=== PATIENT | female | born 1950 | race Caucasian/White ===

== ENCOUNTER 2020-10-19 18:59 | Emergency (ER) | payer MEDICARE, OTHER ==
[~2020-10-19] VITALS: Ht 162.6 cm; Wt 74.4 kg
[2020-10-19 19:58] LABS: ABSOLUTE EOSINOPHILS 0.1 thou/uL (0.0-0.7); ABSOLUTE LYMPHOCYTES 1.8 thou/uL (0.8-5.3); ABSOLUTE MONOCYTES 0.5 thou/uL (0.0-1.2); ABSOLUTE NEUTROPHILS 3.4 thou/uL (1.6-8.1); BASOPHILS 0.6 %; EOSINOPHILS 1.7 %; HEMOGLOBIN 12.1 gm/dL (12.0-15.0); LYMPHOCYTES 31.4 %; MCH 29.4 pg (26.0-34.0); MCHC 33.6 g/dL (28.0-37.0); MCV 87.6 fL (80.0-100.0); MONOCYTES 7.8 %; MPV 6.9 fl. (7.2-11.1); NUCLEATED RBCS 0 /100WBC; PLATELET COUNT* 253 thou/uL (150-400); POLYS 58.5 %; RBC 4.11 mil/uL (4.20-5.00); RDW-CV 12.9 % (10.5-14.5); WBC 5.8 thou/uL (4.0-11.0)
[2020-10-19 20:08] LABS: URINE BILIRUBIN NEGATIVE (Negative); URINE BLOOD TRACE (Negative); URINE CLARITY CLEAR; URINE COLOR YELLOW; URINE GLUCOSE-RANDOM NEGATIVE (Negative); URINE KETONES NEGATIVE (Negative); URINE LEUKOCYTES-REFLEX NEGATIVE (Negative); URINE NITRITE-REFLEX NEGATIVE (Negative); URINE PROTEIN NEGATIVE (Negative); URINE SPECIFIC GRAVITY <= 1.005 (1.005-1.030); URINE UROBILINOGEN 0.2 E.U./dl (0.2-1.0)
[2020-10-19 20:09] LABS: CALCIUM 8.3 mg/dL (8.5-10.1); CREATININE 0.8 mg/dL (0.6-1.3); POTASSIUM 3.1 mmol/L (3.5-5.1)
[2020-10-19 20:14] LABS: ALBUMIN 3.7 g/dL (3.4-5.0); MAGNESIUM 2.1 mg/dL (1.8-2.4); TOTAL BILIRUBIN 0.2 mg/dL (<0.1-1.0); TOTAL PROTEIN 6.8 g/dL (6.4-8.2)
[2020-10-19 20:37] LABS: APTT 27.6 Seconds (25.0-31.3); PROTIME 10.9 Seconds (9.20-11.50)
[2020-10-19] MEDS ORDERED: LOPRESSOR50 MG PO (22:09)
[2020-10-19] MEDS ORDERED: RABEPRAZOLE SOD PO (22:11)
[2020-10-19] MEDS ORDERED: INTERMEZZO3.5 MG PO (22:12)
[2020-10-19] MEDS ORDERED: FLEXERIL PO (22:13)
[2020-10-19] MEDS ORDERED: CLONIDINE HCL0.1 MG PO (22:50)
[2020-10-19 23:08] VITALS: BP 165/78
--- NOTE | 2020-10-20 11:16 | EKG ---
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[place] : 1950 Requested By: Dena Rai Order Number: [id number] MD: Maverick Akhtar Measurements Intervals [place] Rate: 67 P: 51 [place]: 199 QRS: -16 QRSD: 109 T: 16 QT: 445 QTc: 470 Interpretive Statements Sinus rhythm Probable left ventricular hypertrophy Borderline T abnormalities, anterior leads No previous ECG available for comparison Electronically Signed On 10-20-2020 11:16:04 CDT by Maverick Akhtar [email or web address] <ELECTRONICALLY SIGNED> By: Maverick Akhtar MD, [facility] 10/20/20 1116 [id number] 1904 Maverick Akhtar MD, [facility] /EPI
== END 2020-10-19 23:10 | disposition home or self-care (01) ==
LOC: M.ERS 18:59
PROVIDERS: Personal Emergency Response Attendant
DX: I63.9 Cerebral infarction, unspecified (principal); Z20.822 Contact with and (suspected) exposure to COVID-19; I16.0 Hypertensive urgency; H54.61 Unqualified visual loss, right eye, normal vision left eye